=== PATIENT | male | born 1930 | race Caucasian/White ===

== ENCOUNTER 2017-08-25 21:58 | Inpatient (IN) | payer OTHER ==
[~2017-08-25] VITALS: Ht 177.8 cm; Wt 85.5 kg
[2017-08-25] MEDS ORDERED: ACETAMINOPHEN 500 MG TAB PO ONE ×2 (22:31→22:45)
[2017-08-25 23:09] LABS: Basophils # (auto) 0 uL; Basophils % (auto) 0.5 % (0.0-2.0); Eosinophils # (auto) 0 uL; Eosinophils % (auto) 0.1 % (0.0-7.0); Hematocrit 36.5 % (41.0-53.0); Hemoglobin 11.8 g/dL (13.5-17.5); Lymphocytes # (auto) 0.7 uL; Mean Corpuscular Hgb Conc. 32.2 g/dL (32.0-36.0); Mean Corpuscular Volume 86.9 fL (80.0-100.0); Monocytes # (auto) 1.2 uL; Neutrophils # (auto) 6.2 uL; Neutrophils % (auto) 75.4 % (37.0-80.0); Nucleated Red Blood Cells % 0.1 %; Platelet Count (auto) 179 10^3/uL (140-450); Red Blood Cells 4.21 10^6/uL (4.5-5.90); Red Cell Distribution Width 16.2 % (11.8-14.3); White Blood Cell 8.2 10^3/uL (4.4-10.8)
[2017-08-25 23:25] LABS: Albumin 3.2 g/dL (3.4-5.0); BUN/Creatinine Ratio 15.6; Bilirubin, Total 0.4 mg/dL (0.2-1.0); Calcium 7.9 mg/dL (8.5-10.1); Potassium 4.4 mmol/L (3.5-5.1); Total Protein 6.9 g/dL (6.4-8.2)
[2017-08-26] MEDS ORDERED: LEVOFLOXACIN 750MG 150 ML IV ONE (00:30)
[2017-08-26] MEDS ORDERED: FLUT250M2 INH (02:01)
[2017-08-26] MEDS ORDERED: CLON05T PO (02:01)
[2017-08-26] MEDS ORDERED: ISOS30TA4 PO (02:01)
[2017-08-26] MEDS ORDERED: HYDR-4683 PO (02:01)
[2017-08-26 06:42] LABS: Urine Bacteria NONE SEEN /hpf (None Seen); Urine Blood TRACE /uL (Negative); Urine Mucus FEW (None Seen); Urine Specific Gravity 1.014 (1.001-1.035); Urine WBC <1 /hpf (0 - 3)
[2017-08-26] MEDS ORDERED: ONDANSETRON HCL 4 MG/2 ML VIAL IV PRN (07:00)
[2017-08-26] MEDS ORDERED: ALBUTEROL SULF 2.5 MG/0.5ML(0.5%) NEB SOLN NEB PRN (07:00)
[2017-08-26] MEDS ORDERED: SODIUM CHLORIDE 0.9% 500 ML IV ONE (07:00)
[2017-08-26] MEDS ORDERED: ACETAMINOPHEN 325 MG TAB PO PRN (07:00)
[2017-08-26] MEDS ORDERED: TEMAZEPAM 15 MG CAP PO PRN (07:00)
[2017-08-26] MEDS ORDERED: MORPHINE SULFATE 4 MG/ML SYR/VIAL IV PRN (07:00)
[2017-08-26] MEDS ORDERED: NITROGLYCERIN 0.4 MG SL TAB SL PRN (07:00)
[2017-08-26] MEDS ORDERED: cefTRIAXone 1GM/10ml IVPUSH 10 ML IV SCH (08:00)
[2017-08-26] MEDS: ENOXAPARIN SOD 40 MG/0.4 ML SYRINGE SC SCH (09:15)
[2017-08-26] MEDS: ISOSORBIDE MONONITRATE 60 MG TAB PO SCH (09:15)
[2017-08-26] MEDS: clonazePAM 0.5 MG TAB PO SCH ×2 (09:15→20:30)
[2017-08-26] MEDS: ASPirin 81 mg TAB PO SCH (09:15)
[2017-08-26] MEDS: SODIUM CHLORIDE 0.9% 1,000 ML IV SCH ×2 (10:00→21:27)
[2017-08-26 11:00] VITALS: BP 116/56
[2017-08-26 13:32] VITALS: BP 100/57
[2017-08-26 15:13] VITALS: BP 100/57
[2017-08-26] MEDS ORDERED: cefTRIAXone 1GM/10ml IVPUSH 10 ML IV ONE (15:45)
[2017-08-26] MEDS ORDERED: methylPREDNISolone SOD SUCC 125 MG/2 ML VL IM ONE (15:45)
[2017-08-26 16:55] VITALS: BP 152/49
[2017-08-26 18:00] VITALS: BP 116/56
[2017-08-26 21:58] VITALS: BP 113/69
[2017-08-26] MEDS: HYDROcodone-ACET 5/325MG TAB PO PRN (22:02)
[2017-08-27] MEDS: LEVOFLOXACIN 500MG 100 ML IV SCH (02:15)
[2017-08-27 05:59] VITALS: BP 109/63
[2017-08-27 08:00] VITALS: BP 112/81
[2017-08-27 08:01] LABS: Basophils # (auto) 0 uL; Basophils % (auto) 0.1 % (0.0-2.0); Eosinophils # (auto) 0 uL; Eosinophils % (auto) 0.1 % (0.0-7.0); Lymphocytes % (auto) 12.6 % (10.0-50.0); Mean Corpuscular Hemoglobin 28.7 pg (28.0-32.0); Mean Corpuscular Hgb Conc. 33.3 g/dL (32.0-36.0); Mean Corpuscular Volume 86.1 fL (80.0-100.0); Monocytes # (auto) 0.7 uL; Monocytes % (auto) 8.9 % (0.0-12.0); Neutrophils # (auto) 5.9 uL; Neutrophils % (auto) 78.3 % (37.0-80.0); Nucleated Red Blood Cells % 0.1 %; Platelet Count (auto) 133 10^3/uL (140-450); Red Blood Cells 4.19 10^6/uL (4.5-5.90); Red Cell Distribution Width 16.2 % (11.8-14.3); White Blood Cell 7.6 10^3/uL (4.4-10.8)
[2017-08-27 08:19] LABS: Albumin 2.7 g/dL (3.4-5.0); BUN/Creatinine Ratio 14.1; Bilirubin, Total 0.4 mg/dL (0.2-1.0); Calcium 7.8 mg/dL (8.5-10.1); Potassium 3.6 mmol/L (3.5-5.1); Total Protein 6.2 g/dL (6.4-8.2)
[2017-08-27 09:00] VITALS: BP 112/81
[2017-08-27] MEDS: cefTRIAXone 1GM/10ml IVPUSH 10 ML IV SCH (10:56)
[2017-08-27] MEDS: methylPREDNISolone SOD SUCC 125 MG/2 ML VL IV SCH (10:56)
[2017-08-27] MEDS: ASPirin 81 mg TAB PO SCH (10:56)
[2017-08-27] MEDS: ISOSORBIDE MONONITRATE 60 MG TAB PO SCH (10:57)
[2017-08-27] MEDS: SODIUM CHLORIDE 0.9% 1,000 ML IV SCH (10:57)
[2017-08-27] MEDS: ENOXAPARIN SOD 40 MG/0.4 ML SYRINGE SC SCH (10:57)
[2017-08-27] MEDS: clonazePAM 0.5 MG TAB PO SCH ×2 (10:57→21:51)
[2017-08-27 12:00] VITALS: BP 104/59
[2017-08-27 17:01] VITALS: BP 101/67
[2017-08-27] MEDS: HYDROcodone-ACET 5/325MG TAB PO PRN (19:54)
[2017-08-27] MEDS: metroNIDAZOLE 500 MG TAB PO SCH (21:51)
[2017-08-27 22:00] VITALS: BP 120/73
[2017-08-28] MEDS: LEVOFLOXACIN 500MG 100 ML IV SCH (00:17)
[2017-08-28] MEDS: SODIUM CHLORIDE 0.9% 1,000 ML IV SCH ×2 (00:18→13:20)
[2017-08-28 05:08] VITALS: BP 118/66
[2017-08-28] MEDS: metroNIDAZOLE 500 MG TAB PO SCH (05:22)
[2017-08-28 06:44] LABS: Basophils # (auto) 0 uL; Basophils % (auto) 0.1 % (0.0-2.0); Eosinophils # (auto) 0 uL; Hematocrit 36.6 % (41.0-53.0); Hemoglobin 12.1 g/dL (13.5-17.5); Lymphocytes # (auto) 0.4 uL; Lymphocytes % (auto) 9.6 % (10.0-50.0); Mean Corpuscular Hemoglobin 28.2 pg (28.0-32.0); Mean Corpuscular Volume 85.4 fL (80.0-100.0); Monocytes # (auto) 0.3 uL; Monocytes % (auto) 6.8 % (0.0-12.0); Neutrophils # (auto) 3.6 uL; Neutrophils % (auto) 83.5 % (37.0-80.0); Platelet Count (auto) 140 10^3/uL (140-450); Red Blood Cells 4.29 10^6/uL (4.5-5.90); Red Cell Distribution Width 16.3 % (11.8-14.3); White Blood Cell 4.3 10^3/uL (4.4-10.8)
[2017-08-28 06:59] LABS: BUN/Creatinine Ratio 18.3; Calcium 8.1 mg/dL (8.5-10.1); Magnesium 2.4 mg/dL (1.6-2.6); Phosphorus 2.6 mg/dL (2.5-4.90); Potassium 4.2 mmol/L (3.5-5.1)
[2017-08-28 09:00] VITALS: BP 108/57
[2017-08-28] MEDS: ASPirin 81 mg TAB PO SCH (09:09)
[2017-08-28] MEDS: methylPREDNISolone SOD SUCC 125 MG/2 ML VL IV SCH (09:09)
[2017-08-28] MEDS: cefTRIAXone 1GM/10ml IVPUSH 10 ML IV SCH (09:10)
[2017-08-28] MEDS: ISOSORBIDE MONONITRATE 60 MG TAB PO SCH (09:10)
[2017-08-28] MEDS: clonazePAM 0.5 MG TAB PO SCH ×2 (09:10→22:21)
[2017-08-28] MEDS: ENOXAPARIN SOD 40 MG/0.4 ML SYRINGE SC SCH (10:00)
[2017-08-28 13:00] VITALS: BP 113/67
[2017-08-28] MEDS ORDERED: ATORVASTATIN 20 MG TAB PO ONE (14:00)
[2017-08-28 17:00] VITALS: BP 125/65
[2017-08-28 22:00] VITALS: BP 129/78
[2017-08-28] MEDS: FLORASTOR (S. BOULARDII) 250 MG CAP PO SCH (22:00)
[2017-08-28] MEDS: ATORVASTATIN 20 MG TAB PO SCH (22:21)
[2017-08-28] MEDS: HYDROcodone-ACET 5/325MG TAB PO PRN (22:21)
[2017-08-29] MEDS: LEVOFLOXACIN 500MG 100 ML IV SCH (01:15)
[2017-08-29] MEDS: SODIUM CHLORIDE 0.9% 1,000 ML IV SCH ×2 (02:40→16:00)
[2017-08-29 05:00] VITALS: BP 139/81
[2017-08-29 09:00] VITALS: BP 135/69
[2017-08-29] MEDS: cefTRIAXone 1GM/10ml IVPUSH 10 ML IV SCH (09:00)
[2017-08-29] MEDS: methylPREDNISolone SOD SUCC 125 MG/2 ML VL IV SCH (09:49)
[2017-08-29] MEDS: ENOXAPARIN SOD 40 MG/0.4 ML SYRINGE SC SCH (09:50)
[2017-08-29] MEDS: clonazePAM 0.5 MG TAB PO SCH ×2 (11:55→21:33)
[2017-08-29] MEDS: FLORASTOR (S. BOULARDII) 250 MG CAP PO SCH (11:55)
[2017-08-29] MEDS: ASPirin 81 mg TAB PO SCH (11:55)
[2017-08-29] MEDS: ISOSORBIDE MONONITRATE 60 MG TAB PO SCH (11:56)
[2017-08-29 13:00] VITALS: BP 128/67
[2017-08-29] MEDS ORDERED: IOHEXOL 350 MG/ML 100ML IJ ONE (14:03)
[2017-08-29] MEDS ORDERED: ANGIOMAX 250 MG VIAL IV ONE (14:03)
[2017-08-29] MEDS ORDERED: LIDOCAINE 2%HCL (LOCAL ANESTH.) INJ 20ML MDV ONE (14:03)
[2017-08-29] MEDS ORDERED: fentaNYL CITRATE 100 MCG/2 ML VL ONE (14:03)
[2017-08-29] MEDS ORDERED: SODIUM CHL 0.9% 50 ML ONE (14:04)
[2017-08-29] MEDS ORDERED: MIDAZOLAM HCL 1MG/1ML-2 ML VIAL ONE (14:04)
[2017-08-29 14:10] LABS: INR 1.03 (0.9-1.15); Partial Thromboplastin Time 35.2 sec (22.64-33.71); Prothrombin Time 11.2 sec (9.37-12.3)
[2017-08-29] MEDS ORDERED: CLOPIDOGREL 300 MG TAB ONE (14:54)
[2017-08-29] MEDS ORDERED: CLOPIDOGREL 300 MG TAB PO ONE (15:30)
[2017-08-29 16:54] VITALS: BP 117/71
[2017-08-29] MEDS: ATORVASTATIN 20 MG TAB PO SCH (21:33)
[2017-08-29 22:00] VITALS: BP 113/61
[2017-08-30] MEDS: LEVOFLOXACIN 500MG 100 ML IV SCH (00:48)
[2017-08-30 05:00] VITALS: BP 145/81
[2017-08-30] MEDS: SODIUM CHLORIDE 0.9% 1,000 ML IV SCH (05:31)
[2017-08-30 08:59] VITALS: BP 133/71
[2017-08-30] MEDS ORDERED: ASPirin 81 mg TAB PO SCH (10:00)
[2017-08-30] MEDS ORDERED: CLOPIDOGREL BISULFATE 75 MG TAB PO SCH (10:00)
[2017-08-30] MEDS: ISOSORBIDE MONONITRATE 60 MG TAB PO SCH (11:15)
[2017-08-30] MEDS: FLORASTOR (S. BOULARDII) 250 MG CAP PO SCH (11:16)
[2017-08-30] MEDS: cefTRIAXone 1GM/10ml IVPUSH 10 ML IV SCH (11:16)
[2017-08-30] MEDS: methylPREDNISolone SOD SUCC 125 MG/2 ML VL IV SCH (11:16)
[2017-08-30] MEDS: clonazePAM 0.5 MG TAB PO SCH (11:17)
[2017-08-30 14:01] VITALS: BP 132/67
[2017-08-30 14:47] VITALS: BP 132/67
[2017-08-30 16:18] LABS: Free T4 (Free Thyroxine) 1.12 ng/dL (0.89-1.76)
[2017-08-30 16:19] LABS: Folate (Folic Acid) 7.85 ng/mL (5.38-24)
[2017-08-30 17:00] VITALS: BP 131/73
== END 2017-08-30 21:40 | DRG 246 ==
LOC: EDBD 21:58 → ER 22:04 → TELE 22:05 → TELE-WESTW 08-26 10:31
PROVIDERS: ADMIT Nurse Practitioner; ATTEND Internal Medicine
PROC: 027034Z Dilation of Coronary Artery, One Artery with Drug-eluting Intraluminal Device, Percutaneous Approach (ICD-10-PCS; principal; 2017-08-29)
PROC: 4A023N7 Measurement of Cardiac Sampling and Pressure, Left Heart, Percutaneous Approach (ICD-10-PCS; 2017-08-29)
PROC: B2111ZZ Fluoroscopy of Multiple Coronary Arteries using Low Osmolar Contrast (ICD-10-PCS; 2017-08-29)
PROC: B2151ZZ Fluoroscopy of Left Heart using Low Osmolar Contrast (ICD-10-PCS; 2017-08-29)
DX: I21.4 Non-ST elevation (NSTEMI) myocardial infarction (principal); N17.0 Acute kidney failure with tubular necrosis; E44.0 Moderate protein-calorie malnutrition; I42.9 Cardiomyopathy, unspecified; J44.0 Chronic obstructive pulmonary disease with (acute) lower respiratory infection; E11.9 Type 2 diabetes mellitus without complications; J20.9 Acute bronchitis, unspecified; I10 Essential (primary) hypertension; F17.200 Nicotine dependence, unspecified, uncomplicated; H91.90 Unspecified hearing loss, unspecified ear; F03.90 Unspecified dementia, unspecified severity, without behavioral disturbance, psychotic disturbance, mood disturbance, and anxiety; I35.0 Nonrheumatic aortic (valve) stenosis; I70.0 Atherosclerosis of aorta; Z95.5 Presence of coronary angioplasty implant and graft; Z79.82 Long term (current) use of aspirin; Z79.899 Other long term (current) drug therapy; I25.2 Old myocardial infarction; Z82.49 Family history of ischemic heart disease and other diseases of the circulatory system
CPT/HCPCS: 36415; 36600; 70450; 71045; 80048; 80053; 81001; 82607; 82746; 82805; 83605; 83615; 83735; 83880; 84100; 84439; 84443; 84484; 85025; 85610; 85730; 87040; 87081; 87400; 87493; 92928; 93005; 93306; 93458; 93886; 96365; 96375; 97163; 99152; 99153; C1874; C1887; J1956; J2250; J2405